=== PATIENT | male | born 1975 | race Caucasian/White ===

== ENCOUNTER 2018-12-13 16:30 | Emergency (ER) | payer OTHER ==
[2018-12-13] MEDS ORDERED: 0.9 % SODIUM CHLORIDE 1,000 ML IV ONE ×2 (16:34→18:13)
[2018-12-13] MEDS ORDERED: KETOROLAC TROMETHAMINE 30 MG/1ML VIAL IVP ONE (16:34)
[2018-12-13] MEDS ORDERED: fentaNYL CITRATE/PF 100 MCG/2 ML INJ. IV ONE (17:00)
[2018-12-13] MEDS ORDERED: ONDANSETRON HCL/PF 4 MG/ 2ML VIAL ONE (17:03)
[2018-12-13] MEDS ORDERED: ONDANSETRON HCL/PF 4 MG/ 2ML VIAL IVP ONE ×2 (17:12→17:38)
--- NOTE | 2018-12-13 17:12 | ED Physician Documentation ---
Flank Pain - HISTORIAN Historian: patient, paramedics - [facility] Stated Complaint: flank pain Chief Complaint: Flank Pain Onset: hours Timing: worse Context: denies: out of country travel, bad food, recent trauma Associated Symptoms: nausea, vomiting Further Comments: yes (43 year old male patient brought by EMS. Patient states today at approx noon started having left flank pain and blood in urine, at approx 1400 starting having incontinence of urine also c/o nausea & vomiting. Patient was seen in ER last week in [place] was diagnosed with renal calculi. Patient reports 2 stones were found in the left ureter. He was started on flomax.) - ROS CONST: recent illness (ER visit for kidney stone) GI/: bloody urine CVS/RESP: none EYES/ENT: none MS/SKIN/LYMPH: none NEURO/PSYCH: none - SOCIAL HX Smoking History: cigarettes - FAMILY HX Family History: denies: none - PAST HX Past History: kidney stones Medications: see nurse note Allergies: NKDA - VITAL SIGNS Vital Signs: Vital Signs Temp Pulse Resp BP Pulse Ox 98.1 F 91 H 20 161/86 97 12/13/18 16:30 12/13/18 16:30 12/13/18 16:30 12/13/18 16:30 12/13/18 16:30 - REVIEWED ASSESSMENTS Nursing Assessment Reviewed: Yes Vitals Reviewed: Yes Progress - Progress Progress: Patient weight is [address] limit is 350 pounds, will have to send to higher level of care for scan. Call to [facility] - patient accepted by Dr Villafana in the ER. ED Results Lab/Radiology - Orders Orders: ED Orders Category Date Time Status Place IV Lock 1T Care 12/13/18 16:[address] ABD & PELVIS W/O CON Stat Exams 12/13/18 Stop Req CBC/PLATELET/DIFF Stat Lab 12/13/18 16:34 Ordered CMP Stat Lab 12/13/18 16:34 Ordered UA W/MICRO IF INDICATED Stat Lab 12/13/18 16:34 Ordered 0.9 % Sodium Chloride [Normal Saline] 1,000 ml Med 12/13/18 16:34 Discontinued IV NOW Ketorolac Tromethamine [Toradol] Med 12/13/18 16:34 Discontinued 30 mg IVP NOW ONE fentaNYL CITRATE/PF [Sublimaze] Med 12/13/18 17:00 Once 50 mcg IV NOW ONE Abdominal Pain Physical Exam - Physical Exam General Appearance: moderate distress EENT: eye inspection normal, JACKIE RESPIRATORY: no resp distress, chest non-tender, breath sounds normal CVS: reg rate & rhythm, heart sounds normal, equal pulses, no murmur, no gallop, PMI nml, no JVD, no friction rub, 24 ABDOMEN: soft, no organomegaly, normal bowel sounds, no abdominal bruit, no distension, other (morbid obesity) BACK: CVA tenderness (L) SKIN: normal color, warm/dry, NR, INT, PAL, DR EXTREMITIES: non-tender, normal range of motion, no evidence of injury, no edema, J, [employer]: oriented X3, CN's nml as tested, motor nml, sensation nml Vital Signs: Vital Signs Temp Pulse Resp BP Pulse Ox 98.1 F 91 H 20 161/86 97 12/13/18 16:30 12/13/18 16:30 12/13/18 16:30 12/13/18 16:30 12/13/18 16:30 Discharge Clincal Impression: Acute left flank pain Referrals: Primary Doctor,No [Primary Care Provider] - 2 Days Condition: Good Disposition: 02 XFER SHT-TRM HOSP Decision to Admit: NO Decision Time: 19:40
[2018-12-13] MEDS ORDERED: fentaNYL CITRATE/PF 100 MCG/2 ML INJ. IVP ONE (17:38)
[2018-12-13 17:39] LABS: BASOPHILS % 0.6 % (0.0-1.5); NEUTROPHILS # 4.2 # k/uL (1.4-7.7)
[2018-12-13 17:49] LABS: eGFR (Non-African) > 60
[2018-12-13 20:42] VITALS: BP 156/91
[2018-12-14 06:39] LABS: COLOR,URINE YELLOW (YELLOW)
[2018-12-14 06:40] LABS: APPEARANCE,URINE CLOUDY (CLEAR)
[2018-12-14 06:41] LABS: OCCULT BLOOD,URINE TRACE (NEGATIVE); PH URINE 5.5 (5.0 - 8.0); UROBILINOGEN URINE 0.2 Eu (0.2-1.0)
== END 2018-12-13 19:55 | disposition short-term general hospital (02) ==
LOC: ED 16:30 → EDBD 16:30 → ED 19:55
DX: R10.9 Unspecified abdominal pain (principal)
CPT/HCPCS: 36415; 80053; 85025; 96374; 96375; 96376; 99282; 99284; J1885; J2405; J3010; J7030; 81002; S1016